=== PATIENT | female | born 1990 | race Caucasian/White ===

== ENCOUNTER 2016-11-15 19:49 | Outpatient (CLI) | payer BC, OTHER ==
[2016-11-15] MEDS ORDERED: LACTATED RINGERS 1,000 ML IV SCH ×2 (20:45)
[2016-11-15 21:18] LABS: Amorphous Sediment,Urine Few /hpf; Appearance,Urine Cloudy (Clear); Bilirubin,Urine Negative (Negative); Glucose,Urine (UA) Negative (Negative); Ketones,Urine Negative (Negative); Leukocyte Esterase,Urine Negative (Negative); Mucus,Urine Rare /hpf; Nitrite,Urine Negative (Negative); PH, Urine 6.5 (5.0-8.0); Particle Count 6293; Protein,Urine Negative (Negative); RBC,Urine <1 /hpf (0-5); Specific Gravity,Urine 1.012 (1.001-1.035); Squamous Epithelial Cell,Urine 1 /hpf (0-4); UA Billing (MACRO vs. MICRO) MICRO; Urobilinogen,Urine <2.0 mg/dL (<2.0); WBC,Urine 1 /hpf (0-5)
[2016-11-15] MEDS ORDERED: TERBUTALINE 1 MG/ML VIAL SQ PRN (21:35)
== END 2016-11-15 22:05 | disposition home or self-care (01) ==
LOC: FBPOP 19:49
PROVIDERS: ATTEND Obstetrics & Gynecology
DX: O47.1 False labor at or after 37 completed weeks of gestation (principal); Z3A.00 Weeks of gestation of pregnancy not specified
CPT/HCPCS: 59025; 81001; 82731; 84112; 96360; 99214

== ENCOUNTER 2016-11-18 18:25 | Outpatient (CLI) | payer BC, OTHER ==
[2016-11-18 19:35] VITALS: BP 130/86; PULSE 111; RESP 16; TEMP 96.6
== END 2016-11-18 19:25 | disposition home or self-care (01) ==
LOC: FBPOP 18:25
PROVIDERS: ATTEND Obstetrics & Gynecology
DX: O47.03 False labor before 37 completed weeks of gestation, third trimester (principal); Z3A.33 33 weeks gestation of pregnancy
CPT/HCPCS: 59025; 99213

== ENCOUNTER 2016-11-25 21:31 | Outpatient (CLI) | payer BC, OTHER ==
[2016-11-25] MEDS ORDERED: BETAMET ACET-BETAMETH SOD PHOS 6 MG/ML VIAL IM ONE (22:12)
[2016-11-25] MEDS ORDERED: DEXTROSE 5% IV ONE (22:12)
[2016-11-25] MEDS ORDERED: LACTATED RINGERS IV ONE (22:12)
[2016-11-25] MEDS ORDERED: LACTATED RINGERS 1,000 ML BAG IV ONE (22:12)
[2016-11-26 02:25] LABS: Appearance,Urine Clear (Clear); Bilirubin,Urine Negative (Negative); Glucose,Urine (UA) Negative (Negative); Ketones,Urine Negative (Negative); Leukocyte Esterase,Urine Negative (Negative); Mucus,Urine Rare /hpf; Nitrite,Urine Negative (Negative); PH, Urine 6.5 (5.0-8.0); Particle Count 2107; Protein,Urine Negative (Negative); RBC,Urine 163 /hpf (0-5); Specific Gravity,Urine 1.013 (1.001-1.035); Squamous Epithelial Cell,Urine 1 /hpf (0-4); UA Billing (MACRO vs. MICRO) MICRO; Urobilinogen,Urine <2.0 mg/dL (<2.0); WBC,Urine 3 /hpf (0-5)
== END 2016-11-25 23:20 | disposition home or self-care (01) ==
LOC: FBPOP 21:31
PROVIDERS: ATTEND Obstetrics & Gynecology
DX: O47.03 False labor before 37 completed weeks of gestation, third trimester (principal); Z3A.35 35 weeks gestation of pregnancy
CPT/HCPCS: 59025; 99214; 96360; 96372; 81001; 87086; J0702

== ENCOUNTER 2016-11-26 10:31 | Outpatient (CLI) | payer BC, OTHER ==
[2016-11-26] MEDS ORDERED: BETAMET ACET-BETAMETH SOD PHOS 6 MG/ML VIAL IM SCH (10:45)
== END 2016-11-26 10:53 | disposition home or self-care (01) ==
LOC: FBPOP 10:31
PROVIDERS: ATTEND Obstetrics & Gynecology
DX: O26.93 Pregnancy related conditions, unspecified, third trimester (principal); Z3A.34 34 weeks gestation of pregnancy
CPT/HCPCS: 59025; 96372; J0702

== ENCOUNTER 2016-12-04 15:13 | Outpatient (CLI) | payer BC, OTHER ==
[2016-12-04 15:50] VITALS: BP 122/78; RESP 16; TEMP 98.7
[2016-12-04 17:07] VITALS: PULSE 95
--- NOTE | 2016-12-06 07:36 | P.MSEPDOC ---
Presenting Problems - Arrival Data Date of Arrival on Unit: 12/04/16 Time of Arrival on Unit: 15:30 Mode of Transport: Ambulatory - Complaint OB-Reason for Admission/Chief Complaint: Possible Onset of Labor Comment: contractions starting this morning around 9. have increased in strength Medical History - Information : 2 Para: 1 Term: 0 : 0 Abortions: Spontaneous or Elective: 0 Number of Living Children: 1 - Gestational Age Expected Date of Delivery: 01/06/17 Gestational Age by KYLE (wks/days): 35 Weeks and 4 Days - History Complications: Prior Review of Systems - Review of Systems Constitutional: No problems Breast: No problems ENT: No problems Cardiovascular: No problems Respiratory: No problems Gastrointestinal: No problems Genitourinary: No problems Musculoskeletal: No problems Neurological: No problems Skin: No problems Vital Signs - Temperature Temperature: 98.7 F Temperature Source: Oral - Pulse Brachial Pulse Rate: 95 Pulse Assessment Method: Pulse Oximetry - Respirations Respiratory Rate: 16 Oxygen Delivery Method: Room Air O2 Sat by Pulse Oximetry: 98 - Blood Pressure Right Arm Blood Pressure: 122/78 Blood Pressure Mean: 92 Blood Pressure Source: Automatic Cuff Medical Screen Scoring (Pre) - Cervical Exam Dilation: 1-3 cm = 1 - Uterine Contractions Frequency: > 5 minutes apart = 1 - Maternal Vital Signs Maternal Temperature: N/A Maternal Blood Pressure: N/A Signs of Preeclampsia: N/A Maternal Respirations: N/A - Maternal Trauma Maternal Trauma: N/A - Assessment Baseline FHR: 145 Heart Rate - NICHD Category: Category I (Normal) = 0 NST: Reactive - Total Score Total Score (Pre): 2 - Level of Risk Level of Risk: Low (0-5) Medical Screen Scoring (Post) - Cervical Exam Dilation: 1-3 cm = 1 Membranes: Intact - Uterine Contractions Frequency: N/A Duration: N/A - Maternal Vital Signs Maternal Temperature: N/A Signs of Preeclampsia: N/A Maternal Respirations: N/A - Maternal Trauma Maternal Trauma: N/A - Assessment Heart Rate: 140 Heart Rate - NICHD Category: Category I (Normal) = 0 NST: Reactive Position: N/A Station: N/A - Total Score Total Score (Post): 1 - Post Treatment Level of Risk Post Treatment Level of Risk: Low (0-5) Physician Notification (Post) - Physician Notified Physician Notified Date: 12/04/16 Physician Notified Time: 16:47 Physician/Practitioner Notified:: jo Spoke With: jo New Order Received: Yes - Notification Comment Comment: discharge pt home. follow up at appointment tomorrow Disposition - Disposition OB Disposition: Discharge to home Discharge Date: 12/04/16 Discharge Time: 16:47 I agree with the RN Medical Screening Exam: Yes Risk & Benefit of care provided described in d/c instruction: Yes Diagnosis: FALSE LABOR BEFORE 37 COMPLETED WEEKS OF GEST, THIRD TRI
== END 2016-12-04 17:09 | disposition home or self-care (01) ==
LOC: FBPOP 15:13
PROVIDERS: ATTEND Obstetrics & Gynecology
DX: O47.1 False labor at or after 37 completed weeks of gestation (principal); Z3A.35 35 weeks gestation of pregnancy
CPT/HCPCS: 59025; 99213

== ENCOUNTER 2016-12-27 11:28 | Outpatient (CLI) | payer BC, OTHER ==
[2016-12-27 13:16] VITALS: BP 116/74; PULSE 99; RESP 14; TEMP 98
== END 2016-12-27 12:53 | disposition home or self-care (01) ==
LOC: FBPOP 11:28
PROVIDERS: ATTEND Obstetrics & Gynecology
DX: O47.1 False labor at or after 37 completed weeks of gestation (principal); Z3A.38 38 weeks gestation of pregnancy
CPT/HCPCS: 59025; 99213

== ENCOUNTER 2016-12-27 22:35 | Inpatient (IN) | payer BC, OTHER ==
[~2016-12-27 22:35] MED LIST: BUPIVACAINE (PF) 0.25% 30 ML VIAL ONE; SODIUM CHLORIDE 0.9% 100 ML BAG ONE; fentaNYL (PF) 50 MCG/ML 5 ML AMP ONE
[2016-12-27] MEDS ORDERED: LIDOCAINE 1% (PF) 10 MG/ML (30 ML SDV) SQ PRN (23:43)
[2016-12-27] MEDS ORDERED: OXYTOCIN 10 UNIT/ML 1 ML VIAL IM PRN (23:43)
[2016-12-27] MEDS ORDERED: PENICILLIN G POTASSIUM 5,000,000 UNIT in DEXTROSE 5% IN WATER 100 ML IV STA ×2 (23:43)
[2016-12-27] MEDS ORDERED: METHYLERGONOVINE 0.2 MG/ML 1 ML AMP IM PRN (23:43)
[2016-12-27] MEDS ORDERED: TERBUTALINE 1 MG/ML VIAL SQ PRN (23:43)
[2016-12-27] MEDS ORDERED: CARBOPROST TROMETHAMINE 250 MCG/ML 1 ML AMP IM PRN (23:43)
[2016-12-27] MEDS: LACTATED RINGERS 1,000 ML IV SCH (23:59)
[2016-12-28 00:08] LABS: Basophils # (A) 0.1 k/uL (0-0.2); Basophils % (A) 0 %; CHCM 34.5; Eosinophils # (A) 0.1 k/uL (0-0.7); Eosinophils % (A) 1 %; HCT 39.5 % (34.0-46.0); HDW 3.08; HGB 13.3 gm/dL (11.4-16.0); Luc # (Auto) 0.35; Luc % (Auto) 2; Lymphocytes # (A) 2.3 k/uL (1.0-4.8); Lymphocytes % (A) 15 %; MCH 30.4 pg (25.0-35.0); MCHC 33.7 g/dL (31.0-37.0); MCV 90.2 fL (80.0-100.0); Mean Platelet Volume 7.3; Monocytes # (A) 0.9 k/uL (0-1.0); Monocytes % (A) 6 %; Neutrophils # (A) 11.6 k/uL (1.3-7.7); Neutrophils % (A) 76 %; RBC 4.37 m/uL (3.80-5.40); RDW 14.7 % (11.5-15.5); WBC 15.2 k/uL (3.8-10.6)
[2016-12-28] MEDS: LACTATED RINGERS 1,000 ML IV SCH (00:29)
[2016-12-28] MEDS ORDERED: SIMETHICONE 80 MG CHEWABLE PO PRN (01:21)
[2016-12-28] MEDS ORDERED: diphenhydrAMINE 50 MG/ML 1 ML VIAL IVP PRN ×2 (01:21)
[2016-12-28] MEDS ORDERED: diphenhydrAMINE 25 MG CAP PO PRN (01:21)
[2016-12-28] MEDS ORDERED: ZOLPIDEM 5 MG TAB PO PRN (01:21)
[2016-12-28] MEDS ORDERED: Acetaminophen-Codeine 300-30mg TAB PO PRN (01:21)
[2016-12-28] MEDS ORDERED: diphenhydrAMINE 50 MG CAP PO PRN (01:21)
[2016-12-28] MEDS ORDERED: BENZOCAINE SPRAY 57GM TOPICAL PRN (01:21)
[2016-12-28] MEDS ORDERED: ACETAMINOPHEN TAB 325 MG TAB PO PRN (01:21)
[2016-12-28] MEDS ORDERED: WITCH HAZEL 1 EACH MED..PAD TOPICAL PRN (01:21)
[2016-12-28] MEDS ORDERED: LANOLIN CREAM 5 GM TUBE TOPICAL PRN (01:21)
[2016-12-28] MEDS ORDERED: HYDROCORTISONE 2.5% RECTAL CREAM 30 GM TUBE RECTAL PRN (01:21)
--- NOTE | 2016-12-28 01:28 | P.HPOB ---
History of Present Illness H&P Date: 12/28/16 Chief Complaint: 38-4/7 weeks, active labor The patient is a 26-year-old 2 para 0101 admitted at 38-4/7 weeks as established by last menstrual period and confirmed by second trimester ultrasound. She is admitted in active labor with all signs reassuring. Her has been uncomplicated though she is Rh- and received RhoGAM at 28 weeks. She is also known to be group B strep positive. She has a history of a 35 week delivery following spontaneous rupture of membranes. Obstetrical history: 2 para 0101 with 1 previous 35 week normal vaginal delivery following premature rupture of membranes. Current statistics are listed in history of present illness. EDC of 01/06/2017 was established by last menstrual period and confirmed by second trimester ultrasound. Laboratory workup demonstrates a blood type of O- with a negative antibody screen. Rubella status is immune. All other laboratory workup was within normal limits. Second trimester Glucola was within normal limits and group B strep status is positive from her initial urine culture. Gynecologic history is unremarkable with no history of any infections to include any recent history of STDs. Review of Systems Review of systems is confined to history of present illness. Past Medical History History of Any Multi-Drug Resistant Organisms: None Reported Smoking Status: Current every day smoker Medications and Allergies Home Medications Medication Instructions Recorded Confirmed Type Pedi Multivit No.25/Folic Acid 1 tab PO DAILY 08/30/16 12/27/16 History [Flintstones Multivit Chew Tab] Allergies Allergy/AdvReac Type Severity Reaction Status Date / Time No Known Allergies Allergy Verified 12/27/16 22:51 Exam - Vital Signs Vital signs: Vital Signs Temp Pulse Resp BP Pulse Ox 12/27/16 22:51 96.0 F L 94 18 134/91 97 Intake and Output 12/27/16 12/27/16 12/28/16 14:59 22:59 06:59 Other: Weight 77.111 kg Patient Weight 12/28/16 06:59 Weight 77.111 kg In all, this is a well-developed, well-nourished white female in some moderate discomfort secondary to active labor. Her heart has a regular rhythm and rate without murmur. Her lungs are clear to auscultation bilaterally in all newsome. Her abdomen is gravid, nondistended, has normal active bowel sounds, is soft, nontender, and without any palpable masses aside from the uterine fundus. Her extremities are without any cyanosis, clubbing, or significant edema and are nontender to palpation bilaterally. Digital cervical examination upon admission demonstrates her cervix to be 5 cm dilated, 70% effaced, the vertex in presentation at -2 station with a bulging bag of water. Results Result Diagrams: 12/27/16 23:58 Abnormal Lab Results - Last 24 Hours (Table) 12/27/16 Range/Units 23:58 WBC 15.2 H (3.8-10.6) k/uL Neutrophils # 11.6 H (1.3-7.7) k/uL Assessment and Plan (1) Group B streptococcal infection in Status: Acute (2) Active labor at term Status: Acute Plan: The patient is admitted for active management of labor. Her group B strep status necessitates starting antibiotic prophylaxis which has been ordered. She will continue to have close maternal and surveillance and expectant management will be practiced. She has requested an epidural which is to be placed. We will leave the bag of water intact to attempt to allow for adequate antibiotic prophylaxis prior to delivery.
[2016-12-28] MEDS ORDERED: OXYTOCIN 20 UNITS/1000 ML NS 1,000 ML IV SCH (01:30)
--- NOTE | 2016-12-28 01:31 | P.PROBDLV ---
Vaginal Delivery Note - . Vaginal Delivery Note: The patient is a 26-year-old 2 para 0101 admitted at 38-4/7 weeks by good dating parameters. She is admitted in active labor with all signs reassuring. Her has been essentially uncomplicated. She is Rh- and received RhoGAM at 28 weeks. She is also known to be group B strep positive. As result, she had penicillin prophylaxis started upon admission for group B strep. She requested an epidural analgesia which was placed but failed to relieve the significant portion of her discomfort. She progressed very rapidly through the active phase of labor to complete and then pushed over the course of approximately 3 contractions to a normal spontaneous vaginal delivery of a viable 7 lbs. 9 oz. baby boy with Apgars of 9 at 1 minute and 9 at 5 minutes delivered in the direct occiput anterior position. There was a nuchal cord 1 which was reduced following delivery of the infant. The placenta was delivered spontaneously, intact, and grossly normal with a grossly normal three-vessel cord inserted approximate 3-4 synovators from the margin of the placenta. A second-degree midline episiotomy had been cut over the site of a previous episiotomy and was repaired in standard fashion using 3-0 chromic catgut without difficulty. Estimated blood loss for the case was approximately 350 mL. There were no complications. All sponge, instrument, and needle counts were correct. Both mother and infant are resting comfortably in recovery. She did not receive the recommended 4 hours of antibiotic prophylaxis prior to delivery leading to the infant having labs drawn.
[2016-12-28 01:35] VITALS: BMI 29.2
[2016-12-28] MEDS: IBUPROFEN 600 MG TAB PO PRN ×3 (01:51→21:00)
[2016-12-28] MEDS: Acetaminophen-Codeine 300-30mg TAB PO PRN ×3 (02:37→14:03)
[2016-12-28] MEDS ORDERED: PENICILLIN G POTASSIUM 2,500,000 UNIT in DEXTROSE 5% IN WATER 100 ML IV SCH ×2 (04:00)
[2016-12-28] MEDS: SENNOSIDES-DOCUSATE SODIUM 1 EACH TAB PO SCH ×2 (10:41→21:00)
[2016-12-29] MEDS: Acetaminophen-Codeine 300-30mg TAB PO PRN ×3 (01:31→22:06)
[2016-12-29] MEDS: IBUPROFEN 600 MG TAB PO PRN ×3 (04:15→15:18)
--- NOTE | 2016-12-29 08:25 | P.DS ---
Providers Date of admission: 12/27/16 23:43 Expected date of discharge: 12/29/16 Attending physician: Mamie Mata Primary care physician: [facility] Course: This is a 26-year-old white female 2 para 1001 EDC 01/06/2017 at 38-5/7 weeks' gestation. Patient presented with spontaneous labor, strong regular contractions. Spontaneous amniorrhexis revealed clear fluid. was essentially unremarkable, blood type O negative, group B strep cultures positive , rubella status immune. Please see dictated history and physical for details. Patient spontaneously delivered a liveborn male with scores of 9 and 9 at one and 5 minutes respectively. Infant weighed 3450 g or 7 lbs. 9 oz. There was a nuchal cord 1 that was reduced on the perineal body. There was a small midline episiotomy easily repaired for good approximation. Please see dictated delivery note for details. This morning the patient is doing well. She is voiding, ambulating and passing flatus without difficulty. Vital signs are stable and she is afebrile. Fundus is firm and in the midline, symmetric and 18 week size. Breasts are not engorged. Lochia rubra is minimal to moderate, no large clots. Pain is alleviated nicely with Motrin products. Patient is being discharged home in very good condition. She will follow-up in the office with me in 6 weeks. I have reminded her no intercourse, tampons or douching. She will use [id number] products as needed for pain, ibuprofen , 200 mg pills, 3 every 6 hours as needed. I've asked her to call me with any fevers shakes or chills, foul smelling or copious lochia, with the passage of large blood clots, with any pain not alleviated by [id number] products, or indeed with her briefly reviewed options for contraception and we will discuss this further in the office. will follow-up with rivet flunky as recommended. Patient Condition at Discharge: Good Plan - Discharge Summary New Discharge Prescriptions: No Action Pedi Multivit No.25/Folic Acid [Flintstones Multivit Chew Tab] 1 tab PO DAILY Discharge Medication List Pedi Multivit No.25/Folic Acid [Flintstones Multivit Chew Tab] 1 tab PO DAILY [History] Follow up Appointment(s)/Referral(s): Mamie Mata MD [Primary Care Provider] - 6 Weeks Discharge Disposition: HOME SELF-CARE
[2016-12-29] MEDS: SENNOSIDES-DOCUSATE SODIUM 1 EACH TAB PO SCH ×2 (10:23→22:07)
[2016-12-30] MEDS: IBUPROFEN 600 MG TAB PO PRN ×2 (03:19→07:54)
[2016-12-30] MEDS: Acetaminophen-Codeine 300-30mg TAB PO PRN (06:56)
[2016-12-30] MEDS: SENNOSIDES-DOCUSATE SODIUM 1 EACH TAB PO SCH (07:55)
[2016-12-30 08:28] VITALS: BP 108/68; PULSE 89; RESP 16; TEMP 98.2
== END 2016-12-30 08:45 | disposition home or self-care (01) | DRG 774 ==
LOC: FBPOP 22:35 → 4FBP 23:43
PROVIDERS: ADMIT Obstetrics & Gynecology; ATTEND Obstetrics & Gynecology
PROC: 10E0XZZ Delivery of Products of Conception, External Approach (ICD-10-PCS; principal; 2016-12-28)
PROC: 0W8NXZZ Division of Female Perineum, External Approach (ICD-10-PCS; 2016-12-28)
DX: O98.82 Other maternal infectious and parasitic diseases complicating childbirth (principal); B95.1 Streptococcus, group B, as the cause of diseases classified elsewhere; O26.893 Other specified pregnancy related conditions, third trimester; O99.334 Smoking (tobacco) complicating childbirth; O69.81X0 Labor and delivery complicated by cord around neck, without compression, not applicable or unspecified; Z37.0 Single live birth; Z3A.38 38 weeks gestation of pregnancy; Z67.91 Unspecified blood type, Rh negative
CPT/HCPCS: 59025; 85025; 88307; 99213

== ENCOUNTER 2018-07-03 17:12 | Emergency (ER) | payer BC, OTHER ==
[2018-07-03 17:53] VITALS: RESP 16
[2018-07-03] MEDS ORDERED: SODIUM CHLORIDE 0.9% 1,000 ML IV STA (18:30)
--- NOTE | 2018-07-03 18:38 | ED ---
General Adult HPI - General Chief complaint: Abdominal Pain Stated complaint: abd pain Source: patient, RN notes reviewed, old records reviewed Mode of arrival: ambulatory Limitations: no limitations - History of Present Illness Initial comments: 27 old female patient no pertinent past medical history presents to ED with 3 days of right lower quadrant, right upper quadrant pain. Patient states that she works a job requires lifting and she was unable to complete her job yesterday, prompting her to seek care today. Patient states she has had some nausea, denies any emesis. Patient denies any other symptoms, patient denies chest pain, shortness of breath, vaginal discharge, vaginal pain. Systemic: Pt denies fatigue, myalgia, fever/chills, rash. Pt denies weakness, night sweats, weight loss. Neuro: Pt denies headache, visual disturbances, syncope or pre-syncope. HEENT: Pt denies ocular discharge or irritation, otalgia, rhinorrhea, pharyngitis or notable lymphadenopathy. Cardiopulmonary: Pt denies chest pain, SOB, heart palpitations, dyspnea on exertion. Abdominal/GI: Pt denies v/d. : Pt denies dysuria, burning w/ urination, frequency/urgency. Denies new onset urinary or bowel incontinence. MSK: Pt denies myalgia, loss of strength or function in extremities. Neuro: Pt denies new onset weakness, paresthesias. - Related Data Home Medications Medication Instructions Recorded Confirmed Control (Unknown) 1 tab PO DAILY 07/03/18 Previous Rx's Medication Instructions Recorded Ibuprofen [Motrin] 600 mg PO Q6HR PRN #40 day 07/03/18 Allergies Allergy/AdvReac Type Severity Reaction Status Date / Time No Known Allergies Allergy Verified 07/03/18 18:23 Review of Systems ROS Statement: Those systems with pertinent positive or pertinent negative responses have been documented in the HPI. ROS Other: All systems not noted in ROS Statement are negative. Past Medical History Past Medical History: Asthma History of Any Multi-Drug Resistant Organisms: None Reported Past Surgical History: No Surgical Hx Reported Past Psychological History: No Psychological Hx Reported Smoking Status: Current every day smoker - Past Family History Father Family Medical History: No Reported History General Exam - General Exam Comments Initial Comments: Constitutional: NAD, AOX3, Pt has pleasant affect. HEENT: NC/AT, trachea midline, neck supple, no lymphadenopathy. Posterior pharynx non erythematous, without exudates. External ears appear normal, without discharge. Mucous membranes moist. Eyes PERRLA, EOM intact. There is no scleral icterus. No pallor noted. Cardiopulmonary: RRR, no murmurs, rubs or gallops, no JVD noted. Lungs CTAB in anterior and posterior newsome. No peripheral edema. Abdominal exam: Abdomen soft and non-distended. Abdomen mildly tender to palpation in right lower quadrant, right upper quadrant region. [place] sign weakly positive. Repeat exam displayed decreased abdominal tenderness. Bowel sounds active in LLQ. No hepatosplenomegaly. No ecchymosis Neuro: CN II-XII grossly intact. No nuchal rigidity. MSK: No posterior calf tenderness bilaterally, homans sign negative bilaterally. Posterior tibialis and radial pulse +2 bilaterally. Sensation intact in upper and lower extremities. Full active ROM in upper and lower extremities, 5/5 stregnth. Limitations: no limitations Course Vital Signs 07/03/18 07/03/18 07/03/18 17:51 20:00 21:35 Temperature 98.4 F 98.7 F 98.0 F Pulse Rate 87 99 82 Respiratory 16 16 16 Rate Blood Pressure 110/78 116/78 115/76 O2 Sat by Pulse 99 100 99 Oximetry Medical Decision Making - Medical Decision Making 27 old female patient no pertinent past medical history presents to ED with 3 days of right lower quadrant, right upper quadrant pain. Patient states that she works a job requires lifting and she was unable to complete her job yesterday secondary to pain, prompting her to seek care today. Patient states she has had some nausea, denies any emesis. Patient denies any other symptoms. Physical exam displayed abdomen mildly tender in right lower quadrant, right upper quadrant. Leal sign weakly positive. No other pathologic findings identified in physical exam. CBC, CMP, UA non-impressive, hCG negative. Ultrasound of right lower quadrant does not display any signs of appendicitis. Ultrasound of gallbladder and some display any gallstones or dilated ducts. 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 Findings explained to patient, patient verbalized understanding. Repeat abdominal exam displayed marked decreased abdominal tenderness. Patient to be discharged and continue monitor symptoms. Patient to follow with primary care provider in 1-2 days. Patient to return to ED if worsening pain, nausea vomiting diarrhea, any other new symptoms. Spoke with patient via phone on 07/04. Patient states that her abdominal pain has resolved. Case discussed with Dr. Padron. - Lab Data Result diagrams: 07/03/18 18:45 07/03/18 18:45 Lab Results 07/03/18 07/03/18 07/03/18 Range/Units 18:45 18:45 18:45 WBC 8.9 (3.8-10.6) k/uL RBC 4.52 (3.80-5.40) m/uL Hgb 13.8 (11.4-16.0) gm/dL Hct 41.2 (34.0-46.0) % MCV 91.3 (80.0-100.0) fL MCH 30.4 (25.0-35.0) pg MCHC 33.4 (31.0-37.0) g/dL RDW 12.3 (11.5-15.5) % Plt Count 211 (150-450) k/uL Neutrophils % 64 % Lymphocytes % 24 % Monocytes % 7 % Eosinophils % 2 % Basophils % 1 % Neutrophils # 5.7 (1.3-7.7) k/uL Lymphocytes # 2.1 (1.0-4.8) k/uL Monocytes # 0.6 (0-1.0) k/uL Eosinophils # 0.2 (0-0.7) k/uL Basophils # 0.1 (0-0.2) k/uL Sodium 138 (137-145) mmol/L Potassium 4.1 (3.5-5.1) mmol/L Chloride 104 (98-107) mmol/L Carbon Dioxide 25 (22-30) mmol/L Anion Gap 9 mmol/L BUN 13 (7-17) mg/dL Creatinine 0.68 (0.52-1.04) mg/dL Est GFR (CKD-EPI)AfAm >90 (>60 ml/min/1.73 sqM) Est GFR (CKD-EPI)NonAf >90 (>60 ml/min/1.73 sqM) Glucose 90 (74-99) mg/dL Calcium 9.5 (8.4-10.2) mg/dL Total Bilirubin 0.3 (0.2-1.3) mg/dL AST 20 (14-36) U/L ALT 21 (9-52) U/L Alkaline Phosphatase 60 (38-126) U/L Total Protein 7.6 (6.3-8.2) g/dL Albumin 4.5 (3.5-5.0) g/dL Lipase 61 (23-300) U/L Urine Color Urine Appearance (Clear) Urine pH (5.0-8.0) Ur Specific [place] (1.001-1.035) Urine Protein (Negative) Urine Glucose (UA) (Negative) Urine Ketones (Negative) Urine Blood (Negative) Urine Nitrite (Negative) Urine Bilirubin (Negative) Urine Urobilinogen (<2.0) mg/dL Ur Leukocyte Esterase (Negative) Urine RBC (0-5) /hpf Ur Squamous Epith Cells (0-4) /hpf Urine Bacteria (None) /hpf Urine Mucus (None) /hpf Urine HCG, Qual Not Detected (Not Detectd) 07/03/18 Range/Units 18:45 WBC (3.8-10.6) k/uL RBC (3.80-5.40) m/uL Hgb (11.4-16.0) gm/dL Hct (34.0-46.0) % MCV (80.0-100.0) fL MCH (25.0-35.0) pg MCHC (31.0-37.0) g/dL RDW (11.5-15.5) % Plt Count (150-450) k/uL Neutrophils % % Lymphocytes % % Monocytes % % Eosinophils % % Basophils % % Neutrophils # (1.3-7.7) k/uL Lymphocytes # (1.0-4.8) k/uL Monocytes # (0-1.0) k/uL Eosinophils # (0-0.7) k/uL Basophils # (0-0.2) k/uL Sodium (137-145) mmol/L Potassium (3.5-5.1) mmol/L Chloride (98-107) mmol/L Carbon Dioxide (22-30) mmol/L Anion Gap mmol/L BUN (7-17) mg/dL Creatinine (0.52-1.04) mg/dL Est GFR (CKD-EPI)AfAm (>60 ml/min/1.73 sqM) Est GFR (CKD-EPI)NonAf (>60 ml/min/1.73 sqM) Glucose (74-99) mg/dL Calcium (8.4-10.2) mg/dL Total Bilirubin (0.2-1.3) mg/dL AST (14-36) U/L ALT (9-52) U/L Alkaline Phosphatase (38-126) U/L Total Protein (6.3-8.2) g/dL Albumin (3.5-5.0) g/dL Lipase (23-300) U/L Urine Color Yellow Urine Appearance Cloudy H (Clear) Urine pH 6.0 (5.0-8.0) Ur Specific [place] 1.020 (1.001-1.035) Urine Protein Trace H (Negative) Urine Glucose (UA) Negative (Negative) Urine Ketones Negative (Negative) Urine Blood Negative (Negative) Urine Nitrite Negative (Negative) Urine Bilirubin Negative (Negative) Urine Urobilinogen <2.0 (<2.0) mg/dL Ur Leukocyte Esterase Small H (Negative) Urine RBC 2 (0-5) /hpf Ur Squamous Epith Cells 13 H (0-4) /hpf Urine Bacteria Rare H (None) /hpf Urine Mucus Rare H (None) /hpf Urine HCG, Qual (Not Detectd) Disposition Clinical Impression: Abdominal pain Disposition: HOME SELF-CARE Condition: Good Instructions: Abdominal Pain (ED) Additional Instructions: Patient to adhere to previously discussed treatment plan and will take medication(s) as directed. Patient to follow up with PCP in 1-2 days. Patient to return to ED if symptoms do not improve. Prescriptions: Ibuprofen [Motrin] 600 mg PO Q6HR PRN #40 day PRN Reason: Pain Is patient prescribed a controlled substance at d/c from ED?: No Referrals: Ailin Gr MD [Primary Care Provider] - 1-2 days Time of Disposition: 21:25
[2018-07-03 19:05] LABS: Basophils # (A) 0.1 k/uL (0-0.2); Basophils % (A) 1 %; Eosinophils # (A) 0.2 k/uL (0-0.7); Eosinophils % (A) 2 %; HCT 41.2 % (34.0-46.0); HGB 13.8 gm/dL (11.4-16.0); Lymphocytes # (A) 2.1 k/uL (1.0-4.8); Lymphocytes % (A) 24 %; MCH 30.4 pg (25.0-35.0); MCHC 33.4 g/dL (31.0-37.0); MCV 91.3 fL (80.0-100.0); Monocytes # (A) 0.6 k/uL (0-1.0); Monocytes % (A) 7 %; Neutrophils # (A) 5.7 k/uL (1.3-7.7); Neutrophils % (A) 64 %; Platelet Count 211 k/uL (150-450); RBC 4.52 m/uL (3.80-5.40); RDW 12.3 % (11.5-15.5); WBC 8.9 k/uL (3.8-10.6)
[2018-07-03 19:13] LABS: Appearance,Urine Cloudy (Clear); Bacteria,Urine Rare /hpf; Bilirubin,Urine Negative (Negative); Blood,Urine Negative (Negative); Color,Urine Yellow; Glucose,Urine (UA) Negative (Negative); Ketones,Urine Negative (Negative); Leukocyte Esterase,Urine Small (Negative); Mucus,Urine Rare /hpf; Nitrite,Urine Negative (Negative); Protein,Urine Trace (Negative); RBC,Urine 2 /hpf (0-5); Squamous Epithelial Cell,Urine 13 /hpf (0-4); Urobilinogen,Urine <2.0 mg/dL (<2.0)
[2018-07-03 19:17] LABS: ALT 21 U/L (9-52); AST 20 U/L (14-36); Albumin 4.5 g/dL (3.5-5.0); Alkaline Phosphatase 60 U/L (38-126); Anion Gap 9 mmol/L; Blood Urea Nitrogen 13 mg/dL (7-17); Calcium 9.5 mg/dL (8.4-10.2); Carbon Dioxide 25 mmol/L (22-30); Chloride 104 mmol/L (98-107); Glucose 90 mg/dL (74-99); Lipase 61 U/L (23-300); Potassium 4.1 mmol/L (3.5-5.1); Sodium 138 mmol/L (137-145); Total Bilirubin 0.3 mg/dL (0.2-1.3); Total Protein 7.6 g/dL (6.3-8.2)
--- NOTE | 2018-07-03 20:01 | US ---
EXAMINATION TYPE: US gallbladder DATE OF EXAM: 07/03/2018 COMPARISON: NONE CLINICAL HISTORY: Pain. Pain EXAM MEASUREMENTS: Liver Length: 17.8 cm Gallbladder Wall: 0.2 cm CBD: 0.3 cm Right Kidney: 10.6 x 4.1 x 5.6 cm Pancreas: wnl Liver: wnl Gallbladder: wnl Evidence for sonographic Leal's sign: No CBD: wnl Right Kidney: Appears to be a sponge kidney. IMPRESSION: No gallstones or dilated ducts. Hyperechoic renal papilla could relate to medullary spong e kidney.
--- NOTE | 2018-07-03 20:03 | US ---
EXAMINATION TYPE: US abdomen APPY DATE OF EXAM: 07/03/2018 COMPARISON: NONE CLINICAL HISTORY: Pain. Pain APPENDIX AP Diameter (normal < 6mm): 4 mm Measured outer wall to outer wall. Is the appendix seen in its entirety from the proximal cecum to distal end: No Is the appendix compressible: No Does the appendix wall appear hypervascular: No Is an appendicolith present: No Is there inflammatory changes or free fluid present: No Appendix not seen in its entirety. IMPRESSION: No solid or cystic masses identified. No sign of appendicitis.
[2018-07-03 21:37] VITALS: BP 115/76; PULSE 82; TEMP 98
== END 2018-07-03 21:40 | disposition home or self-care (01) ==
LOC: EC 17:12
DX: R10.11 Right upper quadrant pain (principal); R10.31 Right lower quadrant pain; R11.0 Nausea; F17.200 Nicotine dependence, unspecified, uncomplicated; Z79.3 Long term (current) use of hormonal contraceptives
CPT/HCPCS: 36415; 76705; 80053; 81001; 81025; 83690; 85025; 96360; 99284